=== PATIENT | male | born 1975 | race African-American/Black ===

== ENCOUNTER 2020-03-10 13:53 | Outpatient (CLI) | payer BC, SELFPAY ==
--- NOTE | 2020-03-15 13:24 | WPDPFTINT ---
PFT Interpretation PFT Interpretation: DOS: 03/10/2020 REQUESTING: Delilah Rivas MD REASON FOR TESTING: shortness of breath, wheezing PULMONARY FUNCTION TESTS Results are reproducible. Spirometry: FEV1 is 89%, 3.89 L. FVC is 105%. FEV1% is reduced at 61%. QLR67-65% is reduced at 48% predicted. After bronchodilator, there is a nonstatistically significant increase in FEV1 at 8%, and a 36% increase in KDR43-47%. Lung volumes: TLC 118%, normal. RV is increased at 144%, consistent with moderate air trapping. Increased airway resistance 169%. Diffusion: DLCO is normal 91%. Flow volume loop: Mild coving of the expiratory limb. IMPRESSION: Obstructive pattern especially in the small airways with a good response to bronchodilator, and moderate air trapping. In the proper clinical setting, this may represent asthma. Ludmila Guzman MD
== END 2020-03-10 13:54 | disposition home or self-care (01) ==
PROVIDERS: Visit Provider Family Medicine
DX: R06.2 Wheezing (principal); R94.2 Abnormal results of pulmonary function studies
CPT/HCPCS: 94060; 94726; 94729